=== PATIENT | male | born 1970 | race Caucasian/White ===

== ENCOUNTER → 2019-12-06 13:36 | Outpatient (CLI) | payer OTHER, SELFPAY ==
[2019-12-06 13:39] LABS: Bacteria 0 SEEN /hpf (None Seen); Mucous, Urine 0 SEEN /hpf (<or=2+); Red Blood Cells-Urine 0 SEEN /hpf (0-5); White Blood Cells 0 SEEN /hpf (0-5)
[2019-12-06 15:13] LABS: Color, Urine Yellow (Yellow); Glucose, Dipstick Normal (Normal); Ketone-Dipstick Negative (Negative); Leukocyte Esterase-Dipstick Negative /ul (Negative); Nitrite-Dipstick Negative (Negative); Occult Blood-Urine Negative /ul (Negative); Protein-Dipstick Negative (Negative); Urine Bilirubin Dipstick Negative (Negative); Urine Clarity Clear (Clear); Urine Urobilinogen Normal (Normal)
[2019-12-06 15:15] LABS: Absolute Lymphocyte Count 1.91 X10^3/uL (0.83-4.51); Absolute Neutrophil Count 3.4 X10^3/uL (2.0-7.7); Basophil# 0.06 X10^3/uL; Eosinophil# 0.11 X10^3/uL; Eosinophils% 1.7 % (0-5); Hematocrit 51.2 % (40-54); Hemoglobin 16.9 g/dL (13.0-16.5); Lymphocyte # 1.91 X10^3/ul (4.0); Lymphocyte % 30.3 % (19-41); Mean Corpuscular Hgb 33.3 pg (27.0-32.0); Mean Corpuscular Volume 100.8 fL (80-94); Mean Platelet Vol. 9.7 fl (6.2-12.0); Monocyte# 0.83 X10^3/uL; Monocyte% 13.2 % (0-10); NRBC Flagged by Analyzer 0 % (0-5); Neutrophil # 3.37 X10^3/uL (2.7-7.7); Neutrophil % 53.5 % (47-70); Platelet Count 223 K/mm3 (150-450); RBC Distribution Width CV 11.7 % (11.6-14.6); Red Blood Count 5.08 M/mm3 (4.6-6.2); White Blood Count 6.3 K/mm3 (4.4-11.0)
[2019-12-06 15:22] LABS: Squamous Epithelial Cells - UA 0-5 SEEN /hpf (0-5)
[2019-12-06 16:02] LABS: ALB/GLOB Ratio 0.9 RATIO (0.9-2.4); AST(SGOT) 84 U/L (15-37); Alanine Aminotransfer ALT/SGPT 146 U/L (16-61); Alkaline Phosphatase 45 U/L (45-117); Anion Gap 5 (5-15); BUN 16 mg/dL (7-18); BUN/Creat Ratio 15.7 RATIO (10-20); Calcium,Total 9.3 mg/dL (8.5-10.1); Chloride 105 mmol/L (98-107); Cholesterol 228 mg/dL (200); Creatinine, Serum 1.02 mg/dL (0.70-1.30); EST Glomerular Filtration Rate 83 mL/min (>60); Est Glom Filt Rate - Afr Amer 101 mL/min (>60); Globulin 4.4 g/dL (2.2-4.2); Glucose 86 mg/dL (74-106); High Density Lipoprotein 52 mg/dL; Potassium 4.2 mmol/L (3.5-5.1); Protein, Total 8.4 g/dL (6.4-8.2); Sodium Level 139 mmol/L (136-145); T4 Free Direct 0.72 ng/dL (0.76-1.46); Thyroid Stim Hormone (TSH) 1.41 uIU/mL (0.358-3.74); Triglycerides 148 mg/dL; Very Low Density Lipoprotein 30 mg/dL (5-40)
== END ==
PROVIDERS: PCP Family Medicine; Visit Provider Family Medicine
DX: I10 Essential (primary) hypertension (principal); R07.9 Chest pain, unspecified
CPT/HCPCS: 36415; 80053; 80061; 81001; 84439; 84443; 84484; 85025

== ENCOUNTER → 2022-08-12 | Outpatient (CLI) | payer OTHER, SELFPAY ==
[2022-08-12 12:11] LABS: Absolute Lymphocyte Count 1.62 X10^3/uL (0.83-4.51); Absolute Neutrophil Count 5.2 X10^3/uL (2.0-7.7); Basophil# 0.07 X10^3/uL; Basophil% 0.9 % (0-1); Eosinophil# 0.14 X10^3/uL; Eosinophils% 1.8 % (0-5); Hematocrit 51.4 % (40-54); Hemoglobin 17.7 g/dL (13.0-16.5); Lymphocyte # 1.62 X10^3/ul (0.83-4.51); Lymphocyte % 20.3 % (19-41); Mean Corp Hgb Conc 34.4 g/dL (32-36); Mean Corpuscular Hgb 34.8 pg (27.0-32.0); Mean Corpuscular Volume 101.2 fL (80-94); Mean Platelet Vol. 10.1 fl (6.2-12.0); Monocyte# 0.92 X10^3/uL; Monocyte% 11.5 % (0-10); NRBC Flagged by Analyzer 0 % (0-5); Neutrophil # 5.22 X10^3/uL (2.7-7.7); Neutrophil % 65.1 % (47-70); Platelet Count 246 K/mm3 (150-450); RBC Distribution Width CV 11.5 % (11.6-14.6); RBC Distribution Width SD 43.2 fl (35.1-43.9); Red Blood Count 5.08 M/mm3 (4.6-6.2)
[2022-08-12 13:01] LABS: AST(SGOT) 116 U/L (15-37); Alanine Aminotransfer ALT/SGPT 127 U/L (16-61); Albumin, Serum 4.1 g/dL (3.2-5.0); Alkaline Phosphatase 47 U/L (45-117); Anion Gap 8 (5-15); BUN 9 mg/dL (7-18); BUN/Creat Ratio 7.8 RATIO (10-20); Calcium,Total 9.8 mg/dL (8.5-10.1); Chloride 99 mmol/L (98-107); Cholesterol 241 mg/dL (200); Creatinine, Serum 1.15 mg/dL (0.70-1.30); EST Glomerular Filtration Rate 72 mL/min (>60); Est Glom Filt Rate - Afr Amer 87 mL/min (>60); Globulin 4.3 g/dL (2.2-4.2); Glucose 111 mg/dL (74-106); High Density Lipoprotein 53 mg/dL; Potassium 4.4 mmol/L (3.5-5.1); Protein, Total 8.4 g/dL (6.4-8.2); Sodium Level 135 mmol/L (136-145); Thyroid Stim Hormone (TSH) 1.77 uIU/mL (0.358-3.74); Triglycerides 132 mg/dL; Very Low Density Lipoprotein 26 mg/dL (5-40)
[2022-08-13 10:21] LABS: Hemoglobin A1c 5.5 % (3.8-5.6)
== END | disposition home or self-care (01) ==
PROVIDERS: PCP Family Medicine; Referring Provider Family Medicine; Visit Provider Family Medicine
DX: Z00.00 Encounter for general adult medical examination without abnormal findings (principal); R73.01 Impaired fasting glucose; E55.9 Vitamin D deficiency, unspecified; I10 Essential (primary) hypertension; Z12.5 Encounter for screening for malignant neoplasm of prostate; Z77.098 Contact with and (suspected) exposure to other hazardous, chiefly nonmedicinal, chemicals
CPT/HCPCS: 36415; 80053; 80061; 82306; 83036; 84153; 84443; 85025; G0103

== ENCOUNTER 2022-12-21 20:39 | Emergency (ER) | payer OTHER, SELFPAY ==
[2022-12-21 20:41] VITALS: BP 122/92; PULSE 94; RESP 15; TEMP 36.6; O2SAT 100; BMI 28.8
--- NOTE | 2022-12-21 21:21 | ED.RN ---
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 PT DENIED ANY QUESTIONS OR CONCERNS
--- NOTE | 2022-12-21 22:01 | CT_ITS ---
STUDY: CT BRAIN WITHOUT CONTRAST REASON FOR EXAM: Male, 52 years old. head injury RADIATION DOSAGE (If Supplied By Facility): CTDIvol = ( 44.99 ) mGy, DLP = ( 846.73 ) mGycm TECHNIQUE: Transaxial CT imaging of the brain was performed without administration of intravenous contrast material. Individualized dose optimization techniques were used for this CT. COMPARISON: No relevant priors. FINDINGS: Normal soft tissue structures. Normal calvarium. There is mild cerebral atrophy with widening of the extra-axial spaces and ventricular dilatation. Normal white matter tracts of the cerebral hemispheres. Normal basal ganglia and thalami. Normal brainstem. Normal cerebellum. There is no intracranial hemorrhage. There are no findings of an acute ischemic infarction. Normal visualized paranasal sinuses. CT/Brain/Head without Contrast IMPRESSION: Involutional changes otherwise normal unenhanced CT scan of the brain. Electronically Signed: Monika Mclean MD at 22:44 EST ,
[2022-12-21] MEDS: Ondansetron ODT 4 MG Tablet PO (22:53)
[2022-12-21] MEDS: Acetaminophen 325 MG Tablet 650 MG PO (22:53)
[2022-12-21 23:00] VITALS: BP 120/63; PULSE 95; RESP 16; O2SAT 98
--- NOTE | 2022-12-21 23:18 | EDS_ITS ---
HPI History of Present Illness Chief Complaint: Head Injury Informant: patient Narrative Narrative: Patient is a 52-year-old male with history of anxiety, hypertension and prior concussion/head injuries presenting for head injury. Today around 1130 patient fell backwards at work out of his chair. He hit his head. Laying on concrete. He is not sure if he lost consciousness but thinks he did. He states afterwards his body feel like it went into shock and he had a full body spasm. He states he fell like he had a seizure. He denies any associated urinary incontinence. He does not think he bit his tongue. Since then he has had progressively worsening headache, whiplash, shoulder pain with left worse than right, back pain, ringing in his ears and confusion. Notes he is having ear pain. Is not on any blood thinners. No other complaints at this time. Did take Motrin earlier in the day but states it is worn off and his symptoms been worse since then. Notes he did have a greta earlier today but does not feel intoxicated. Notes he does feel dizzy. [facility] Medical History Anxiety Hernia HTN (hypertension) Home Medications citalopram 20 mg tablet 40 mg PO DAILY 12/21/22 [History Last Taken Unknown] ibuprofen 600 mg tablet 600 mg PO Q6H PRN PRN pain #20 TABLETS 12/21/22 [Rx Last Taken Unknown] lisinopril 10 mg-hydrochlorothiazide 12.5 mg tablet 1 tab PO DAILY 12/21/22 [History Last Taken Unknown] ondansetron 4 mg disintegrating tablet 4 mg PO Q8H PRN PRN Nausea #15 tabs 12/21/22 [Rx Last Taken Unknown] Allergy/AdvReac Type Severity Reaction Status Date / Time Iodinated Contrast Media Allergy Swelling Verified 12/21/22 20:46 [Iodinated Contrast Media - IV Dye] morphine AdvReac AGITATED Verified 12/21/22 20:46 Surgical History History of appendectomy History of hernia surgery Social History household members: family housing: house current occupational status: employed Smoking Status: Former smoker ROS ROS ED Constitutional Constitutional ED: Denies chills or fever(s) Eyes Eyes: Reports blurry vision ENT ENT ED: Reports ear pain; Denies rhinorrhea or sore throat Cardiovascular Cardiovascular: Denies chest pain or palpitations Respiratory/Chest Respiratory/Chest: Denies cough or dyspnea Gastrointestinal Gastrointestinal: Reports nausea; Denies abdominal pain or vomiting Musculoskeletal Musculoskeletal: Reports back pain and neck pain Integumentary Denies rash Neurologic Neurologic: Reports headache(s); Denies paresthesias or weakness Psychiatric Psychiatric: Reports anxiety Hematologic/Lymphatic Hematologic/Lymphatic: Denies easy bleeding or easy bruising EXAM Physical Exam Const Vital Signs: 12/21/22 20:41 12/21/22 21:36 12/21/22 23:00 Temperature 97.8 F Temperature Source Temporal Pulse Rate 94 95 Respiratory Rate 15 16 Respiratory Effort Normal Respiratory Depth Normal Respiratory Pattern Normal Blood Pressure 122/92 H 120/63 Blood Pressure Mean 102 82 Pulse Ox 100 98 Oxygen Delivery Method Room Air Room Air Room Air 12/21/22 23:00 Temperature Temperature Source Pulse Rate 95 Respiratory Rate 16 Respiratory Effort Respiratory Depth Respiratory Pattern Blood Pressure 120/63 Blood Pressure Mean 82 Pulse Ox 98 Oxygen Delivery Method Positive well nourished and well developed General Appearance ED: well developed and NAD HEENT Reports TM's clear HEENT Narrative: Posterior scalp cephalhematoma present, no laceration appreciated. No signs of basilar skull fracture, no signs of facial trauma tenderness Nose: Negative for septum abnormal Tympanic Membrane ED: Yes TM's clear Eyes PERRL and EOMs intact bilaterally Neck full ROM Neck Narrative: No midline tenderness, no step-off sign General: Negative for tenderness Chest Wall inspection of chest normal and palpation of chest normal Resp normal respiratory effort and clear to auscultation bilaterally Cardio regular rhythm and no murmurs Rate: regular rate GI normal to inspection, nondistended, normoactive bowel sounds and non-tender Back/Spine normal to inspection and no thoracic nor lumbar tenderness Extremity normal to inspection and full ROM Extremity Narrative: Mild diffuse tenderness of the left shoulder which is not reproducible with range of motion General Extremety ED: Negative for deformity General Extremity: Negative for deformity Neuro oriented x3, CN's II-XII intact bilaterally, moves all extremities, no focal motor deficits, no sensory deficits noted and gait normal Darlene Coma Scale: document GCS findings Spontaneous Obeys Commands Oriented 15 Psych thought process normal Mood & Affect: anxious Skin no rashes or lesions noted and no wounds MDM MDM MDM Narrative Medical decision making narrative: Patient is evaluated for head injury, subsequent headache and other vague neurol ogic symptoms. I suspect this is more of a concussion however given his nausea, blurry vision, ringing in his ears and sense of confusion I did obtain a CT of the brain to ensure that there is no acute intracranial hemorrhage. Patient is initially given oral Zofran and Tylenol. He does not have any focal neurologic deficits on physical exam. CT of the brain does not show any acute process. Not have any midline tenderness and I suspect the rest of his muscle skeletal pain is more tightening of the muscles associate with this fall. 1 CT of the brain is reviewed and does not show any acute intracranial hemorrhage, patient is given IM Toradol. He is able to ambulate with a steady gait and walk to the bathroom by himself. Will be given referral for neurology as he has a history of prior concussions I suspect this is playing signs of a postconcussive syndrome. Is given a prescription for Zofran and Motrin 600 mg Given return precautions. Patient and spouse verbalized agreement understand this plan. Discharged home in stable condition. Radiography Diagnostic Testing: Clinical Impression(s) from Imaging Studies Brain CT 12/21/22 22:01 IMPRESSION: Involutional changes otherwise normal unenhanced CT scan of the brain. Electronically Signed: Monika Mclean MD at 22:44 EST Reading Location ID and State: [address] [place] [address] , Service support , Discharge Plan Triage Chief Complaint: Head Injury ED Provider: Lizette Bolton Dx/Rx/DC Orders Clinical Impression: Concussion, Closed head injury Instructions: ED Concussion, ED Head Injury (Adult) Prescriptions: New ondansetron 4 mg tablet,disintegrating 4 mg PO Q8H PRN PRN (Reason: Nausea) Qty: 15 0RF ibuprofen 600 mg tablet 600 mg PO Q6H PRN PRN (Reason: pain) Qty: 20 0RF No Action citalopram 20 mg tablet 40 mg PO DAILY Patient Comments: TAKE 2 TABLET BY MOUTH EVERY DAY lisinopril-hydrochlorothiazide 10-12.5 mg tablet 1 tab PO DAILY Patient Comments: TAKE 1 TABLET BY MOUTH EVERY DAY Primary Care Provider: Flavio Delong Referrals: Flavio Delong DO [Primary Care Provider] - Juve Norris MD [Non-Staff -Ordering Privileges] - As Needed Activity Restrictions/Additional Instructions: Alternate ibuprofen with Tylenol. Do not take any more ibuprofen tonight as you did receive a dose of IM Toradol. Follow-up with your primary care doctor and you been given referral for neurology if your symptoms persist. At this time I do think it safe for you to go home and he did not have any major signs of trauma on your head CT such as bleeding on the brain or skull fracture Disposition Disposition: Home, Self Care Discharge Date/Time: 12/21/22 23:36
[2022-12-21] MEDS: Ketorolac 15 MG/ML Vial IM (23:22)
== END 2022-12-21 23:36 | disposition home or self-care (01) ==
PROVIDERS: Emergency Provider Emergency Medicine; PCP Family Medicine; Visit Provider Emergency Medicine
DX: S06.0X0A Concussion without loss of consciousness, initial encounter (principal); I10 Essential (primary) hypertension; F41.9 Anxiety disorder, unspecified; Z79.899 Other long term (current) drug therapy; Z87.891 Personal history of nicotine dependence; W07.XXXA Fall from chair, initial encounter
CPT/HCPCS: 70450; 96372; 99283

== ENCOUNTER → 2023-03-21 | Outpatient (CLI) | payer OTHER, SELFPAY ==
--- OUTSIDE RECORDS SUMMARY | 2023-03-21 13:36 | XMS RPT_ITS | CCD ---
Author Name Unknown Address [address] [place] [address] Organization [facility] Care Team Providers Care Audio Visual Equipment Rental Clerk Name Role Phone Nikia Avendaño Unavailable Socrates Gdofrey Unavailable Elena Munoz Unavailable Unavailable Genet Ye Unavailable Unavailable Pillowcase Cleaner, System Unavailable Unavailable Unavailable Unavailable Allergies Allergy Classification Reported Allergen(s) Allergy Type Date of Onset Reaction(s) Facility (1 source) Acetaminophen / HYDROcodone; Translations: [Vicodin *ANALGESICS - OPIOID*] Drug Allergy [facility] Work Phone: (1 source) Shellfish; Translations: [Shellfish] Allergy to substance (finding) [facility] Work Phone: (1 source) Morphine Derivatives; Translations: [Morphine Derivatives] Allergy to substance (finding) [facility] Work Phone: Medications Completed/Discontinued Medications Medication Drug Class(es) Dates Sig (Normalized) Sig (Original) amoxicillin 875 mg / clavulanate 125 mg oral tablet (1 source) Penicillin-class Antibacterial Start: 12-03-2011 End: 12-17-2011 take 1 tablet by mouth twice daily AUGMENTIN, 875-125MG (Oral Tablet) 1 Tablet bid for 14 days Quantity: 28 {Tablet} Refills: 0 Ordered: 03-Dec-2011 Jessica Crocker CNP Start : 03-Dec-2011 End : 17-Dec-2011 Inactive 24 hr clarithromycin 500 mg extended release oral tablet (1 source) Macrolide Antimicrobial Start: 12-06-2011 End: 12-16-2011 take 2 tablets by mouth once daily BIAXIN XL PAC, 500MG (Oral Tablet Extended Release 24 Hour) 2 (two) Tablet ER 24HR daily for 10 days Quantity: 20 {Tablet_ER_24HR} Refills: 0 Ordered: 06-Dec-2011 Jessica Crocker CNP Start : 06-Dec-2011 End : 16-Dec-2011 Inactive fluticasone propionate 0.05 mg/actuat metered dose nasal spray (1 source) Corticosteroid Start: 12-03-2011 End: 04-17-2014 FLONASE, 50MCG/ACT (Nasal Suspension) 2 (two) Puff(s) daily for 0 days Quantity: 1 {Suspension} Refills: 0 Ordered: 17-Apr-2014 Genet Ye Start : 03-Dec-2011 End : 17-Apr-2014 Discontinued ibuprofen 200 mg oral tablet (1 source) Nonsteroidal Anti-inflammatory Drug Start: 09-15-2006 End: 07-14-2010 take 3 tablets by mouth three times daily IBUPROFEN IB, 200MG (Oral Tablet) 3 (three) Tablet TID for 0 days Refills: 0 Ordered: 15-Sep-2006 NURA Burrows LPN Start : 15-Sep-2006 End : 14-Jul-2010 Discontinued Comments: This order discontinued per -Span. Problems Active Problems Problem Classification Problem Date Documented Da te Episodic/Chronic Abdominal pain (3 sources) Epigastric pain; Translations: [Generalized abdominal pain] 05-21-2014 Episodic Disorders of lipid metabolism (1 source) Hypertriglyceridemia; Translations: [Hyperglyceridemia] 02-12-2015 Chronic Nonspecific chest pain (1 source) Chest pain; Translations: [Other chest pain] 12-24-2014 Episodic Other connective tissue disease (2 sources) Pain in limb; Translations: [Pain in limb] 05-21-2014 Episodic Other ear and sense organ disorders (1 source) Disorder of ear; Translations: [Other specified disorders of ear, unspecified ear] 01-17-2015 Episodic Past or Other Problems Problem Classification Problem Date Documented Da te Episodic/Chronic Unclassified (2 sources) Unspecified Diagnosis 05-21-2014 Unclassified (5 sources) Unclassified (1 source) Eustachian Tube Dysfunction (381.81) Unclassified (1 source) Elevated LFTs 05-21-2014 Unclassified (2 sources) Diarrhea (Renamed from D (diarrhea)) Unclassified (1 source) Abdominal Pain,General (789.07) Unclassified (1 source) Abnormal blood chemistry (790.6) Unclassified (1 source) ABN GTT 05-21-2014 Unclassified (1 source) Abn. Echo 05-21-2014 Results Test Name Value Interpretation Reference Range Facil ity Vital Signs Date Time Vital Sign Value Performing Clinician Facility 05-21-2014 10:49-0400 BMI (Body Mass Index) 28.46 kg/m2 Nikia Avendaño [facility] Work Phone: 05-21-2014 10:490400 Body Temperature 96 [degF] Nikia Fast [facility] Work Phone: 05-21-2014 10:49-0400 Body weight 77.57 kg Nikia Fast [facility] Work Phone: 05-21-2014 10:49-0400 BP Diastolic 90 mm[Hg] Nikia Fast [facility] Work Phone: Encounters Encounter Date Encounter Type Care Provider Facility Start: 05-21-2014 End: 05-21-2014 Office outpatient visit 15 minutes Nikia Avendaño [facility] Start: 04-17-2014 End: 04-18-2014 Office outpatient visit 25 minutes Nikia Fast [facility] Start: 12-06-2011 End: 12-06-2011 Annotation/Addendum Nikia Avendaño [facility] Start: 12-03-2011 End: 12-03-2011 Office outpatient visit 15 minutes Nikia Avendaño [facility] Start: 07-23-2010 End: 07-23-2010 Patient encounter procedure Nikia Avendaño [facility] Start: 07-14-2010 End: 07-17-2010 Patient encounter procedure Nikia Avendaño [facility] Start: 09-15-2006 End: 09-15-2006 Patient encounter procedure Nikia Fast [facility] Start: 09-15-2006 End: 09-15-2006 Historical Summary Nikia Fast [facility] Procedures Date Procedure Procedure Detail Performing Clinician Start: 05-27-2014 End: 05-27-2014 Gallbladder Comments: See Note; NOTES: [facility] Imaging Services [address] [place] [address] Ultrasound Report MR#: [id number] Acct: [id number] Name: STAR MILLER Rep #: [id number] : 1970 M 43 From: Pantera James MD PCP: Nikia Avendaño DO Status: REG CLI Study: Gallbladder Date of Exam: 05/27/14 Exam# [id number] Ordering Dr: Nikia Avendaño DO STUDY: ABDOMINAL ULTRASOUND - RIGHT UPPER QUADRANT REASON FOR VISIT: Male, 43 years old. Abdominal pain. TECHNIQUE: Ultrasound evaluation of the right upper quadrant was performed with real-time and static velez-scale imaging. TECHNICAL QUALITY: Adequate. COMPARISON: None. FINDINGS: Liver: The liver measures 15.8 cm. There is increased echogenicity consistent with fatty infiltration. The bile ducts are within normal limits. There is hepatic color flow. The direction of portal flow is hepatopetal. There is no demonstrated mass lesion. Gallbladder: Normal distended gallbladder. The gallbladder wall measures 1.5 mm. There is a negative sonographic White's sign. There is no pericholecystic fluid. There are no gallstones. Common Bile Duct (C.B.D.): The common bile duct measures 3.9 mm. Pancreas: Normal size of the head, body and tail of the pancreas. There is normal echogenicity of the pancreas. There is no demonstrated pancreatic mass or cyst. Right Kidney: Normal size of the right kidney. The right kidney measures 11.5 cm x 4.2 cm x 4.2 cm. Normal renal cortex. The right cortex measures 1.3 cm. There is no demonstrated renal mass or cyst. There is no right hydronephrosis. IMPRESSION: Fatty infiltration of the liver. Electronically Signed: Pantera James MD at 9:51 EDT Tel [phone], Service support [phone], CC: Nikia Avendaño DO Back Feeder Plywood Layup Line: Signed Nikia Avendaño Work Phone: Start: 04-24-2014 End: 04-25-2014 Abdomen/Pelvis without Cont Comments: See Note; NOTES: [facility] Imaging Services [address] [place] [id number] CAT Scan Report MR#: [id number] Acct: [id number] Name: STAR MILLER Rep #: [id number] : 1970 M 43 From: Titi Hernandez MD PCP: Nikia Avendaño DO Status: REG CLI Study: Abdomen/Pelvis without Cont Date of Exam: 04/24/14 Exam# [id number] Ordering Dr: Nikia Avendaño DO STUDY: CT ABDOMEN AND PELVIS WITHOUT CONTRAST REASON FOR EXAM: Male, 43 years old. Abdominal pain. RADIATION DOSAGE (If Supplied By Facility): CTDIvol = ( 6.87 ) mGy, DLP = ( 451.72 ) mGycm TECHNIQUE: Transaxial images were obtained from the dome of the diaphragm to the symphysis pubis with oral contrast, and without intravenous contrast. Sagittal and coronal images were reconstructed. COMPARISON: None. FINDINGS: The visualized lung bases are unremarkable. The visualized portions of the heart are within normal limits. There is decreased attenuation of the liver consistent with steatosis. Normal gallbladder and extrahepatic biliary system. Normal spleen. Normal pancreas. Normal bilateral adrenal glands. Normal right kidney. Normal left kidney. Normal visualized stomach. Normal small intestine. Normal colon. There are surgical clips in the region of the appendix consistent with a prior appendectomy. Normal abdominal aorta. Normal inferior vena cava. Normal retroperitoneum. Normal urinary bladder. Normal abdominal wall. Normal osseous structures. IMPRESSION: Normal unenhanced CT of the abdomen and pelvis. Electronically Signed: Titi Hernandez MD at 17:04 EDT Tel , Service support [phone], CC: Nikia Avendaño DO Back Feeder [employer] Layup Line: Signed Nikia Avendaño Work Phone: Plan of Treatment Date Care Activity Detail Author Start: 05-21-2014 Assay of gammaglobulin ige IMMUNOGLOBULIN E (IgE) (67747) [facility] Work Phone: Start: 05-21-2014 Assay of gammaglobulin iga igd igg igm each IGA/IGD/IGG/IGM-EACH ([id number]) [facility] Work Phone: Start: 04-17-2014 Patient Education Abdominal Pain: abdominal pain [facility] Work Phone: Start: 04-17-2014 Procedure Education Eprescribed prescriptions (G8553) [facility] Work Phone: Start: 09-15-2006 Provider Instructions for Treatment Musculoskeletal Injuries [facility] Work Phone: [facility] Work Phone: [facility] Work Phone: Payers Date Payer Category Payer Policy ID Unknown Social History Date Type Detail Facility Caffeine Use Caffeine Use [facility] Work Phone: Family History Unknown Family Member Name Dates Details First Degree Relatives Comments:[place], Heart/Lung, HBP , high cholesterol Status:Active Instructions Name Dates Details Patient Instructions Indication:Epigastric Pain (Renamed from Abdominal pain, epigastric) Start:21-May-2014 Instruction Type:Provider Instructions for Treatment Patient Instructions Indication:Abdominal pain, acute, generalized Start:17-Apr-2014 Instruction Type:Provider Instructions for Treatment Additional Source Comments FOR RECORDS PERTAINING TO PATIENTS WHO ARE OR HAVE BEEN ENROLLED IN A CHEMICAL DEPENDENCY/SUBSTANCEABUSE PROGRAM, SOME INFORMATION MAY BE OMITTED. This clinical summary was aggregated from multiple sources. Caution should be exercised in using it in the provision of clinical care. This summary normalizes information from multiple sources, and as a consequence, information in this document may materially change the coding, format and clinical context of patient data. In addition, data may be omitted in some cases. CLINICAL DECISIONS SHOULD BE BASED ON THE PRIMARY CLINICAL RECORDS. [employer] [facility]. provides no warranty or guarantee of the accuracy or completeness of information in this document.
[2023-03-28 19:07] LABS: Fats, Neutral Normal (.); Fats, Total Normal (.)
== END | disposition home or self-care (01) ==
LOC: LABSPEC 13:06
PROVIDERS: PCP Family Medicine; Visit Provider Family Medicine
DX: R19.7 Diarrhea, unspecified (principal)
CPT/HCPCS: 82705; 83630

== ENCOUNTER → 2023-05-25 | Outpatient (CLI) | payer OTHER, SELFPAY ==
[2023-05-25 17:49] LABS: CRP < 2.90 mg/L (0.0-3.0)
[2023-05-27 15:08] LABS: Endomysial Antibody IgA Negative (Negative); Immunoglobulin A 512 mg/dL (90-386); t-Transglutaminase IgA <2 U/mL (0-3)
== END | disposition home or self-care (01) ==
LOC: MTLAB 15:30
PROVIDERS: PCP Family Medicine; Referring Provider Internal Medicine Gastroenterology; Visit Provider Internal Medicine Gastroenterology
DX: R19.7 Diarrhea, unspecified (principal)
CPT/HCPCS: 36415; 82784; 83516; 86140; 86255

== ENCOUNTER → 2023-05-26 | Outpatient (CLI) | payer OTHER, SELFPAY ==
--- NOTE | 2023-05-26 13:37 | MRI_ITS ---
STUDY: MRI CERVICAL SPINE WITHOUT CONTRAST REASON FOR EXAM: Male, 52 years old. CERVICAL PAIN TECHNIQUE: Standardized fat and water weighted pulse sequences were obtained in the sagittal and axial planes. COMPARISON: None FINDINGS: Normal foramen magnum and brainstem-cervical cord junction. Normal craniovertebral junction. Normal anterior atlantoaxial articulation. Normal odontoid process. Normal cervical lordosis. Normal vertebral bodies and posterior osseous elements. C2-3: Normal endplates. Normal disc height, signal and morphology. Normal central canal and intervertebral neural foramina. C3-4: Normal endplates. Normal disc height, signal and minimal bulging of the disc Normal central canal and intervertebral neural foramina. C4-5: Normal endplates. Normal disc height, signal and minimal bulging of the disc. Normal central canal and intervertebral neural foramina. C5-6: Grade 1 spondylolisthesis Normal endplates. Normal disc height, signal and minimal bulging disc osteophyte complex.. Normal central canal and intervertebral neural foramina. C6-7: Normal endplates. Normal disc height, signal and small left foraminal disc/osteophyte protrusion.. Normal central canal. Moderate left neural foraminal stenosis. C7-T1: Normal endplates. Normal disc height, signal and morphology. Normal central canal and intervertebral neural foramina. Normal cervical cord. Normal visualized soft tissue structures. MRI/Spine Cervical (Routine) IMPRESSION: No evidence for acute fracture or other significant bony pathology. Mild spondylosis. Moderate left neural foraminal stenosis at C6-7 secondary to left foraminal disc/osteophyte protrusion Electronically Signed: Johnnie Perez MD at 16:38 EDT ,
== END | disposition home or self-care (01) ==
LOC: MRI 13:21
PROVIDERS: PCP Family Medicine
DX: S06.0X0A Concussion without loss of consciousness, initial encounter (principal)
CPT/HCPCS: 72141

== ENCOUNTER → 2023-06-06 | Outpatient (CLI) | payer OTHER, SELFPAY ==
--- NOTE | 2023-06-06 07:57 | RAD_ITS ---
STUDY: X-RAY - ESOPHAGUS (BARIUM SWALLOW) WITH FLUOROSCOPY REASON FOR EXAM: Male, 52 years old. DYSPHAGIA TECHNIQUE: 18 view(s) of the esophagus were obtained following swallowing of barium. FLUOROSCOPY TIME (if supplied): (40) minutes/seconds. 11.73 mGy. COMPARISON: None. FINDINGS: There is no demonstrated esophageal foreign body. There is no demonstrated stricture or mucosal abnormality. Small sliding hiatal hernia. Weblike narrowing is seen at the gastroesophageal junction. The patient ingested a 12 mm tablet of barium. The tablet is trapped at the gastroesophageal junction at the level of the weblike narrowing. Incidental note is made of a 8.5 mm x 4.8 mm diverticulum at the junction of the second and third portions of the duodenum. Normal visualized aortic arch and descending thoracic aorta. Normal visualized pulmonary parenchyma. There are diffuse degenerative changes of the visualized thoracic spine. RAD/Esophagus Dual Contrast IMPRESSION: Small hiatal hernia with a small weblike narrowing at the gastroesophageal junction with trapping of the 12 mm tablet of barium. Incidental note is made of a diverticulum at the junction of the second and third portions of the duodenum. Electronically Signed: Pantera James MD at 13:31 EDT ,
== END | disposition home or self-care (01) ==
LOC: RAD 07:52
PROVIDERS: PCP Family Medicine; Referring Provider Internal Medicine Gastroenterology; Visit Provider Internal Medicine Gastroenterology
DX: R13.10 Dysphagia, unspecified (principal)
CPT/HCPCS: 74221

== ENCOUNTER 2024-02-06 00:05 | Emergency (ER) | payer OTHER, SELFPAY ==
[2024-02-06] VITALS (12 sets, daily range): BP systolic 90–113; BP diastolic 62–86; PULSE 68–82; RESP 14–21; TEMP 36.4–36.6; O2SAT 91–98; BMI 28.9
--- NOTE | 2024-02-06 00:22 | RAD_ITS ---
INDICATION: chest pain EXAMINATION/TECHNIQUE: X-RAY - XR Chest 1 View COMPARISON: 05/24/2005 chest radiograph Findings: Single frontal view of the chest. LUNG PARENCHYMA: No acute focal airspace disease or mass lesion. PLEURA: No pleural effusion. No pneumothorax. HEART/GREAT VESSELS: Cardiomediastinal silhouette is unremarkable. BONES: Osseous structures are unremarkable for age. RAD/Chest 1 View (Portable) IMPRESSION: Chest with no acute disease. Electronically Signed: Phillip Butcher MD at 2:15 EST ,
--- NOTE | 2024-02-06 00:22 | EKG12_ITS ---
Test Reason : CP Blood Pressure : */* mmHG Vent. Rate : 78 BPM Atrial Rate : 78 BPM P-R Int : 174 ms QRS Dur : 86 ms QT Int : 390 ms P-R-T Axes : 4 1 17 degrees QTcB Int : 444 ms Normal sinus rhythm Normal ECG Confirmed by LISA TUCKER, MYAH ([id number]), senior editor JULIANNA ALEXANDRE ([id number]) on 02/06/2024 10:49:24 AM Referred By: BB Confirmed By: MYAH GONZALEZ MD
--- NOTE | 2024-02-06 00:23 | EDS_ITS ---
HPI History of Present Illness Chief Complaint: Chest Pain Informant: patient and spouse/S.O. Narrative Narrative: 53-year-old male presenting with chest discomfort feels like it is burning on the left side nonpleuritic. States has been there for a while but worse in the past 3 days along with generalized weakness, chills and sweats, occasional dyspnea, blurry vision on occasion, numbness and tingling all over his body, lightheadedness, no GI symptoms. He states that this has been going on for couple months. He states he did have a PCP visit for it. Yessi Tuesday night at midnight, brings him in because they were checking his blood pressure and had been a little bit elevated in the 150s when he usually is around 140, but yessi it was somewhere in the high 80s/30s and he felt like he was going to pass out. [facility] Medical History Anxiety HTN (hypertension) Hernia Home Medications ?Medication ?Instructions ?Recorded ?Last Taken ?Type citalopram 20 mg tablet 40 mg PO DAILY 12/21/22 Unknown History ibuprofen 600 mg tablet 600 mg PO Q6H PRN PRN pain #20 12/21/22 Unknown Rx TABLETS lisinopril 10 1 tab PO DAILY 12/21/22 Unknown History mg-hydrochlorothiazide 12.5 mg tablet Allergy/AdvReac Type Severity Reaction Status Date / Time Iodinated Contrast Media Allergy Swelling Verified 02/06/24 00:06 (Iodinated Contrast Media - IV Dye) Opioids - Morphine Analogues AdvReac Other Verified 02/06/24 00:12 (narcotics) Surgical History History of appendectomy History of hernia surgery Social History household members: family housing: house current occupational status: employed Smoking Status: Former smoker ROS ROS ED Constitutional Constitutional ED: Reports fatigue and weakness; Denies chills or fever(s) Eyes Eyes: Reports blurry vision bilateral (Intermittent no vision loss); Denies change in vision or diplopia ENT ENT ED: Denies ear pain, rhinorrhea or sore throat Cardiovascular Cardiovascular: Reports as per HPI, chest pain and lightheadedness; Denies palpitations or syncope Respiratory/Chest Respiratory/Chest: Denies cough or dyspnea on exertion Gastrointestinal Gastrointestinal: Denies abdominal pain, diarrhea, nausea or vomiting Genitourinary Genitourinary ED: Reports other Details: Foamy urine ; Denies dysuria or hematuria Musculoskeletal Musculoskeletal: Denies back pain or neck pain Integumentary Denies abscess or rash Neurologic Neurologic: Reports paresthesias RUE, RLE, LUE and LLE; Denies headache(s) or weakness EXAM Physical Exam Const Vital Signs: 02/06/24 00:06 02/06/24 00:06 02/06/24 00:24 Temperature 97.5 F L Temperature Source Oral Pulse Rate 78 Pulse Rate [Lying] Pulse Rate [Sitting (for 1 minute prior to obtaining)] Pulse Rate [Standing (for 1 minute prior to obtaining)] Respiratory Rate 19 H Respiratory Effort Normal Blood Pressure 113/78 Blood Pressure [Lying] Blood Pressure [Sitting (for 1 minute prior to obtaining)] Blood Pressure [Standing (for 1 minute prior to obtaining)] Blood Pressure Mean 89 Blood Pressure Mean [Lying] Blood Pressure Mean [Sitting (for 1 minute prior to obtaining)] Blood Pressure Mean [Standing (for 1 minute prior to obtaining)] Pulse Ox 98 Oxygen Delivery Method Room Air 02/06/24 01:17 02/06/24 01:30 02/06/24 01:45 Temperature Temperature Source Pulse Rate 73 73 69 Pulse Rate [Lying] Pulse Rate [Sitting (for 1 minute prior to obtaining)] Pulse Rate [Standing (for 1 minute prior to obtaining)] Respiratory Rate 14 18 16 Respiratory Effort Blood Pressure 98/77 95/73 Blood Pressure [Lying] Blood Pressure [Sitting (for 1 minute prior to obtaining)] Blood Pressure [Standing (for 1 minute prior to obtaining)] Blood Pressure Mean 84 81 Blood Pressure Mean [Lying] Blood Pressure Mean [Sitting (for 1 minute prior to obtaining)] Blood Pressure Mean [Standing (for 1 minute prior to obtaining)] Pulse Ox 95 95 93 Oxygen Delivery Method 02/06/24 02:00 02/06/24 02:15 02/06/24 02:30 Temperature Temperature Source Pulse Rate 69 68 Pulse Rate [Lying] Pulse Rate [Sitting (for 1 minute prior to obtaining)] Pulse Rate [Standing (for 1 minute prior to obtaining)] Respiratory Rate 18 17 Respiratory Effort Blood Pressure 104/86 H 91/68 90/68 Blood Pressure [Lying] Blood Pressure [Sitting (for 1 minute prior to obtaining)] Blood Pressure [Standing (for 1 minute prior to obtaining)] Blood Pressure Mean 93 76 76 Blood Pressure Mean [Lying] Blood Pressure Mean [Sitting (for 1 minute prior to obtaining)] Blood Pressure Mean [Standing (for 1 minute prior to obtaining)] Pulse Ox 95 94 Oxygen Delivery Method 02/06/24 02:30 02/06/24 02:45 02/06/24 03:00 Temperature Temperature Source Pulse Rate 70 82 74 Pulse Rate [Lying] Pulse Rate [Sitting (for 1 minute prior to obtaining)] Pulse Rate [Standing (for 1 minute prior to obtaining)] Respiratory Rate 17 21 H 18 Respiratory Effort Blood Pressure 90/68 98/78 90/63 Blood Pressure [Lying] Blood Pressure [Sitting (for 1 minute prior to obtaining)] Blood Pressure [Standing (for 1 minute prior to obtaining)] Blood Pressure Mean 76 86 72 Blood Pressure Mean [Lying] Blood Pressure Mean [Sitting (for 1 minute prior to obtaining)] Blood Pressure Mean [Standing (for 1 minute prior to obtaining)] Pulse Ox 91 95 91 Oxygen Delivery Method 02/06/24 03:15 02/06/24 03:24 Temperature Temperature Source Pulse Rate Pulse Rate [Lying] 70 Pulse Rate [Sitting (for 1 minute prior to obtaining)] 74 Pulse Rate [Standing (for 1 minute prior to obtaining)] 80 Respiratory Rate Respiratory Effort Blood Pressure 93/65 Blood Pressure [Lying] 96/62 Blood Pressure [Sitting (for 1 minute prior to obtaining)] 102/78 Blood Pressure [Standing (for 1 minute prior to obtaining)] 106/80 Blood Pressure Mean 75 Blood Pressure Mean [Lying] 73 Blood Pressure Mean [Sitting (for 1 minute prior to obtaining)] 86 Blood Pressure Mean [Standing (for 1 minute prior to obtaining)] 88 Pulse Ox Oxygen Delivery Method Positive well nourished and well developed Constitutional Narrative: Appears fatigued but no distress General Appearance ED: well developed and NAD HEENT Reports moist mucous membranes normocephalic and atraumatic Eyes PERRL and EOMs intact bilaterally Neck full ROM, no lymphadenopathy, supple and no JVD Resp normal respiratory effort and clear to auscultation bilaterally Cardio regular rate, regular rhythm and no murmurs Rate: Negative for bradycardia or tachycardic GI non-tender and non-distended Auscultation: normoactive bowel sounds Palpation: soft Back/Spine no CVA tenderness General Back: other FROM Extremity normal to inspection General Extremety ED: Negative for edema, pulses abnormal or tenderness General Extremity: Negative for edema or pulses abnormal Neuro oriented x3, CN's II-XII intact bilaterally and no sensory deficits noted Neuro Narrative: Normal speech no dysarthria Sensorium / Orientation: awake and alert Motor Exam: general weakness Skin no rashes or lesions noted and no wounds MDM MDM MDM Narrative Medical decision making narrative: During my evaluation the patient appears to be very tired and states I am going out as he appears to fall asleep and then occasionally answer my questions and comments during this while his vital signs are completely normal, arguing against syncope. I am okay running some cardiac test, chest x-ray, TSH to look for hypothyroidism, monotest, and some basic labs to put all of his symptoms for months in the context. In the meantime he was given IV fluids. Does not have any focal neurologic deficits to suggest a CT of the head would be needed. Additionally his dizziness is lightheadedness and not vertiginous in nature. After the IV fluids, it was noted that he had a couple of lower blood pressures although his MAP are normal. At this time I had nursing do orthostatics, although the patient felt dizzy, his orthostatics are negative and normal. His labs are all normal except for a D-dimer which is elevated. Chest x-ray 2 views on my interpretation showed no pneumonia, urine shows no infection, his TSH is normal, his mono is negative, his COVID/flu/RSV is negative, he is not especially prerenal, and his blood counts are unremarkable. Given the D-dimer and left-sided chest pain which I suspect is probably reflux, he was sent for CT angiography of the chest to rule out pulmonary embolus. I reviewed the images and report which I agree with, it is essentially normal and negative for PE. It also did show some signs of possible esophagitis, again consistent with the patient's chest discomfort on the left side it feels hot and burning. He is already on omeprazole. As I discussed with the patient I would never tell anyone that nothing is wrong, but he has a history of anxiety and prior to knowing this I asked the patient if he was having anxiety attacks and he does not think he is. Is possible that could be causing some of this especially the paresthesias. His lactate was sent to rule out sepsis given his symptoms and borderline blood pressures despite negative orthostatics, that is well within normal limits. Given all of this, his medical workup is essentially normal, so I discussed his medications with him. He lists a combination blood pressure medication which he takes every day, and propranolol extended release. He states he has not taken the propranolol in a while, because it made him feel really fatigued and lightheaded. I can recommend that he not take it anymore, but also discontinue the other combination blood pressure medication until he follows up with his doctor given his low blood pressure readings. Lab Data Attestation: I reviewed the patient's lab results. Labs: Laboratory Results - last 24 hr 02/06/24 02/06/24 02/06/24 00:16 00:33 01:20 WBC 10.2 RBC 4.62 Hgb 16.5 Hct 46.2 MCV 100.0 H MCH 35.7 H MCHC 35.7 RDW Std Deviation 41.0 RDW Coeff of Naty 11.2 L Plt Count 199 MPV 9.5 Immature Gran % (Auto) 0.400 Neut % (Auto) 50.9 Lymph % (Auto) 33.8 [place] % (Auto) 10.9 H Eos % (Auto) 3.1 Baso % (Auto) 0.9 Absolute Neuts (auto) 5.2 Absolute Lymphs (auto) 3.43 Nucleated RBC % 0 D-Dimer Quant (PE/DVT) 1.96 H* Sodium 134 L Potassium 3.7 Chloride 97 L Carbon Dioxide 26.0 Anion Gap 11 BUN 15 Creatinine 0.98 Estim Creat Clear Calc 89.30 Est GFR (MDRD) Af Amer 104 Est GFR (MDRD) Non-Af 86 BUN/Creatinine Ratio 15.3 Glucose 103 Lactic Acid Calcium 9.4 Troponin I High Sens 4 TSH 2.960 Urine Color Straw Urine Clarity Clear Urine pH 6.0 Ur Specific [place] 1.010 Urine Protein Negative Urine Glucose (UA) Normal Urine Ketones Negative Urine Occult Blood Negative Urine Nitrite Negative Urine Bilirubin Negative Urine Urobilinogen Normal Ur Leukocyte Esterase Negative Urine RBC 0 SEEN Urine WBC 0 SEEN Ur Squamous Epith Cells 0 SEEN Urine Bacteria 0 SEEN Urine Mucus 0 SEEN Monoscreen Negative 02/06/24 03:19 WBC RBC Hgb Hct MCV MCH MCHC RDW Std Deviation RDW Coeff of Naty Plt Count MPV Immature Gran % (Auto) Neut % (Auto) Lymph % (Auto) [place] % (Auto) Eos % (Auto) Baso % (Auto) Absolute Neuts (auto) Absolute Lymphs (auto) Nucleated RBC % D-Dimer Quant (PE/DVT) Sodium Potassium Chloride Carbon Dioxide Anion Gap BUN Creatinine Estim Creat Clear Calc Est GFR (MDRD) Af Amer Est GFR (MDRD) Non-Af BUN/Creatinine Ratio Glucose Lactic Acid 1.3 Calcium Troponin I High Sens TSH Urine Color Urine Clarity Urine pH Ur Specific [place] Urine Protein Urine Glucose (UA) Urine Ketones Urine Occult Blood Urine Nitrite Urine Bilirubin Urine Urobilinogen Ur Leukocyte Esterase Urine RBC Urine WBC Ur Squamous Epith Cells Urine Bacteria Urine Mucus Monoscreen Radiography Diagnostic Testing: Clinical Impression(s) from Imaging Studies Chest X-Ray 02/06/24 00:22 IMPRESSION: Chest with no acute disease. Electronically Signed: Phillip Butcher MD at 2:15 EST , Chest CTA 02/06/24 02:35 IMPRESSION: Diffuse long segment circumferential esophageal wall thickening suggesting esophagitis. No pulmonary embolus or acute aortic abnormality. Electronically Signed: Phillip Butcher MD at 3:47 EST , Rhythm Strip Rhythm Strip: Sinus Rhythm Rate: 75 Ectopy: None EKG Initial EKG: Attestation: I personally reviewed and interpreted this EKG as follows: Interpretation: Sinus Rhythm and No Acute Injury Pattern Comments: Nml axis & intervals; nml EKG Prior EKG tracings: not available for review Prior: No Prior Discharge Plan Triage Chief Complaint: Chest Pain ED Provider: Tank Alexis Dx/Rx/DC Orders Clinical Impression: Fatigue, Lightheadedness, Transient hypotension, Paresthesias, Non-cardiac chest pain Instructions: ED Low Blood Pressure, All Causes, ED Paraesthesias Prescriptions: Continued citalopram 20 mg tablet 40 mg PO DAILY Patient Comments: TAKE 2 TABLET BY MOUTH EVERY DAY ibuprofen 600 mg tablet 600 mg PO Q6H PRN PRN (Reason: pain) Qty: 20 0RF Held lisinopril-hydrochlorothiazide 10-12.5 mg tablet 1 tab PO DAILY Hold Instructions: until you follow up with your doctor, unless your systolic blood pressures are 160 or higher, then restart Patient Comments: TAKE 1 TABLET BY MOUTH EVERY DAY Discontinued propranolol 60 mg capsule,extended release 24 hr 60 mg PO QHS Primary Care Provider: Flavio Delong Referrals: Flavio Delong, [Primary Care Provider] - As soon as possible Print Language: Greek Disposition Disposition: Home, Self Care
[2024-02-06 00:32] LABS: Absolute Lymphocyte Count 3.43 X10^3/uL (0.83-4.51); Absolute Neutrophil Count 5.2 X10^3/uL (2.0-7.7); Basophil# 0.09 X10^3/uL; Basophil% 0.9 % (0-1); Eosinophil# 0.32 X10^3/uL; Eosinophils% 3.1 % (0-5); Hematocrit 46.2 % (40-54); Hemoglobin 16.5 g/dL (13.0-16.5); Lymphocyte # 3.43 X10^3/ul (0.83-4.51); Lymphocyte % 33.8 % (19-41); Mean Corp Hgb Conc 35.7 g/dL (32-36); Mean Corpuscular Hgb 35.7 pg (27.0-32.0); Mean Platelet Vol. 9.5 fl (6.2-12.0); Monocyte# 1.11 X10^3/uL; Monocyte% 10.9 % (0-10); NRBC Flagged by Analyzer 0 % (0-5); Neutrophil # 5.17 X10^3/uL (2.7-7.7); Neutrophil % 50.9 % (47-70); Platelet Count 199 K/mm3 (150-450); RBC Distribution Width CV 11.2 % (11.6-14.6); Red Blood Count 4.62 M/mm3 (4.6-6.2); White Blood Count 10.2 K/mm3 (4.4-11.0)
[2024-02-06] MEDS: 0.9% Normal Saline (1000mL) 1,000 ML 999 ML IV (00:34)
[2024-02-06 00:51] LABS: D-Dimer Quantitative (DVT/PE) 1.96 FEU/ug/m (0.27-0.49)
[2024-02-06 00:57] LABS: Internal QC Validated? YES +Cl - CLEAR BKGD; Monotest Negative (Negative)
[2024-02-06 00:58] LABS: Record Kit Lot#, Mono 13241430
[2024-02-06 01:10] LABS: Anion Gap 11 (5-15); BUN 15 mg/dL (7-18); BUN/Creat Ratio 15.3 RATIO (10-20); Calcium,Total 9.4 mg/dL (8.5-10.1); Chloride 97 mmol/L (98-107); Creatinine, Serum 0.98 mg/dL (0.70-1.30); EST Glomerular Filtration Rate 86 mL/min (>60); Est Glom Filt Rate - Afr Amer 104 mL/min (>60); Glucose 103 mg/dL (74-106); Potassium 3.7 mmol/L (3.5-5.1); Sodium Level 134 mmol/L (136-145); Troponin-I HS 4 pg/mL (3.0-78.0)
[2024-02-06] MEDS: DiphenhydrAMINE 50 MG/ML Syringe IV (01:14)
[2024-02-06 01:24] LABS: Bacteria 0 SEEN /hpf (None Seen); Mucous, Urine 0 SEEN /hpf (<or=2+); Red Blood Cells-Urine 0 SEEN /hpf (0-5); Squamous Epithelial Cells - UA 0 SEEN /hpf (0-5); White Blood Cells 0 SEEN /hpf (0-5)
[2024-02-06 01:26] LABS: Color, Urine Straw (Yellow); Glucose, Dipstick Normal (Normal); Ketone-Dipstick Negative (Negative); Leukocyte Esterase-Dipstick Negative /ul (Negative); Nitrite-Dipstick Negative (Negative); Occult Blood-Urine Negative /ul (Negative); Protein-Dipstick Negative (Negative); Urine Bilirubin Dipstick Negative (Negative); Urine Clarity Clear (Clear); Urine Urobilinogen Normal (Normal)
--- NOTE | 2024-02-06 02:35 | CT_ITS ---
INDICATION: chest pain, elevated d-dimer EXAMINATION: - CTA Chest WO/W Contrast Injection A radiation dose optimization technique was used for this scan. RADIATION DOSAGE (If Supplied By Facility): CTDIvol/DLP = ( 11.61 ) / ( 397.84 ) mGy/mGycm COMPARISON: Chest radiograph same day. FINDINGS: Contrast enhanced serial CTA axial images through the chest with coronal and sagittal reformatted series. Additional dedicated coronal and sagittal MIP reformatted series provided as well. IV Contrast dosage and agent: 100 cc Isovue-370 IV. MEDIASTINUM: No acute thoracic aortic abnormality. No pulmonary artery filling defects. Diffuse long segment circumferential esophageal wall thickening suggesting esophagitis. LUNG PARENCHYMA: No acute pulmonary parenchymal abnormality. PLEURA: No pleural effusion. No pneumothorax. BONES: Osseous structures are unremarkable for age. UPPER ABDOMEN: Unremarkable. CT/CTA Chest W/WO Contrast IMPRESSION: Diffuse long segment circumferential esophageal wall thickening suggesting esophagitis. No pulmonary embolus or acute aortic abnormality. Electronically Signed: Phillip Butcher MD at 3:47 EST ,
[2024-02-06 04:01] LABS: Lactic Acid 1.3 mmol/L (0.4-1.9)
== END 2024-02-06 04:17 | disposition home or self-care (01) ==
PROVIDERS: Emergency Provider Emergency Medicine; PCP Family Medicine; Visit Provider Emergency Medicine
DX: R53.83 Other fatigue (principal); R42 Dizziness and giddiness; I95.89 Other hypotension; R20.2 Paresthesia of skin; R07.89 Other chest pain; F41.9 Anxiety disorder, unspecified; I10 Essential (primary) hypertension; Z87.891 Personal history of nicotine dependence; Z79.899 Other long term (current) drug therapy
CPT/HCPCS: 71045; 71275; 80048; 81001; 83605; 84443; 84484; 85025; 85379; 86308; 87631; 93005; 96361; 96374; 96375; 96376; 99284; Q9967; A4216

== ENCOUNTER 2024-02-07 23:33 | Emergency (ER) | payer OTHER, SELFPAY ==
--- NOTE | 2024-02-07 11:50 | RAD_ITS ---
STUDY: X-RAY CHEST REASON FOR EXAM: Male, 53 years old. chest pain TECHNIQUE: Single frontal view of the chest. COMPARISON: Chest x-ray. February 06, 2024. FINDINGS: The lungs are clear and expanded. There is no demonstrated pleural abnormality. Normal size heart. Normal mediastinum and servando. Normal visualized pulmonary arteries. Normal visualized aortic arch and descending thoracic aorta. Normal visualized thoracic spine. Normal visualized ribs, clavicles, and shoulders. There is no demonstrated abnormality of the visualized soft tissue structures of the upper abdomen. RAD/Chest 1 View (Portable) IMPRESSION: Normal x-ray examination of the chest. Electronically Signed: Ethan Olivia MD at 0:44 EST ,
[2024-02-07 23:33] VITALS: BP 97/60; PULSE 78; RESP 16; TEMP 36.9; O2SAT 98; BMI 29.1
--- NOTE | 2024-02-07 23:37 | EKG12_ITS ---
Test Reason : DYSRHYTHMIA Blood Pressure : */* mmHG Vent. Rate : 79 BPM Atrial Rate : 79 BPM P-R Int : 170 ms QRS Dur : 86 ms QT Int : 396 ms P-R-T Axes : 18 7 22 degrees QTcB Int : 454 ms Normal sinus rhythm Normal ECG Confirmed by LISA TUCKER, MYAH ([id number]), commissioning editor LAURA BROWN ([id number]) on 02/09/2024 6:13:23 AM Referred By: Confirmed By: MYAH GONZALEZ MD
--- NOTE | 2024-02-08 00:11 | CT_ITS ---
EXAM: CT ANGIOGRAPHY HEAD AND NECK WITH INTRAVENOUS CONTRAST CLINICAL INDICATION: weakness TECHNIQUE: [place] [facility] [place]/head and neck CT angiography protocol performed with intravenous contrast. This CT exam was performed using one or more of the following dose reduction techniques: automated exposure control, adjustment of the mA and/or kV according to patient size, and/or use of iterative reconstruction technique. MIP reconstructed images were created and reviewed. CONTRAST: 100 cc of Isovue-370 IV. RADIATION DOSE: CTDIvol = 32.36 mGy, DLP = 1669.94 mGy-cm COMPARISON: No relevant prior studies available. FINDINGS: HEAD: RIGHT ANTERIOR CEREBRAL ARTERY: Unremarkable. No occlusion or significant stenosis. Anterior communicating artery is present. No aneurysm. RIGHT MIDDLE CEREBRAL ARTERY: Unremarkable. No occlusion or significant stenosis. No aneurysm. RIGHT POSTERIOR CEREBRAL ARTERY: Unremarkable. No occlusion or significant stenosis. No aneurysm. RIGHT INTRACRANIAL INTERNAL CAROTID ARTERY: Unremarkable. No significant stenosis. No dissection or occlusion. RIGHT INTRACRANIAL VERTEBRAL ARTERY: Unremarkable. No significant stenosis. No dissection or occlusion. LEFT ANTERIOR CEREBRAL ARTERY: Unremarkable. No occlusion or significant stenosis. No aneurysm. LEFT MIDDLE CEREBRAL ARTERY: Unremarkable. No occlusion or significant stenosis. No aneurysm. LEFT POSTERIOR CEREBRAL ARTERY: Unremarkable. No occlusion or significant stenosis. No aneurysm. LEFT INTRACRANIAL INTERNAL CAROTID ARTERY: Unremarkable. No significant stenosis. No dissection or occlusion. LEFT INTRACRANIAL VERTEBRAL ARTERY: Unremarkable. No significant stenosis. No dissection or occlusion. BASILAR ARTERY: Unremarkable. No occlusion or significant stenosis. No aneurysm. OTHER VASCULATURE: No vascular malformation. NECK: RIGHT COMMON CAROTID ARTERY: Unremarkable. No significant stenosis. No dissection or occlusion. RIGHT EXTRACRANIAL INTERNAL CAROTID ARTERY: Unremarkable. No significant stenosis. No dissection or occlusion. RIGHT EXTERNAL CAROTID ARTERY: Unremarkable. No occlusion. RIGHT EXTRACRANIAL VERTEBRAL ARTERY: Unremarkable. No significant stenosis. No dissection or occlusion. LEFT COMMON CAROTID ARTERY: Unremarkable. No significant stenosis. No dissection or occlusion. LEFT EXTRACRANIAL INTERNAL CAROTID ARTERY: Unremarkable. No significant stenosis. No dissection or occlusion. LEFT EXTERNAL CAROTID ARTERY: Unremarkable. No occlusion. LEFT EXTRACRANIAL VERTEBRAL ARTERY: Unremarkable. No significant stenosis. No dissection or occlusion. BRACHIOCEPHALIC AND SUBCLAVIAN ARTERIES: Unremarkable as visualized. No occlusion or significant stenosis. LUNG APICES: Unremarkable as visualized. HEAD and NECK: BONES/JOINTS: Unremarkable. No discrete lytic or blastic abnormalities. SOFT TISSUES: Unremarkable. CAROTID STENOSIS REFERENCE USING NASCET CRITERIA: % ICA stenosis = (1 - narrowest ICA diameter/diameter of distal cervical ICA) x 100. Mild - <50% stenosis. Moderate - 50-69% stenosis. Severe - 70-94% stenosis. Near occlusion - 95-99% stenosis. Occluded - 100% stenosis. CT/CTA Head AND Neck W/ Contrast IMPRESSION: Negative CTA carotid and CTA brain. Electronically Signed: Tee Larsen MD at 2:53 EST ,
[2024-02-08 00:17] LABS: Absolute Lymphocyte Count 3.43 X10^3/uL (0.83-4.51); Absolute Neutrophil Count 4.6 X10^3/uL (2.0-7.7); Basophil# 0.08 X10^3/uL; Basophil% 0.9 % (0-1); Eosinophil# 0.16 X10^3/uL; Eosinophils% 1.7 % (0-5); Hematocrit 41.6 % (40-54); Hemoglobin 14.9 g/dL (13.0-16.5); Lymphocyte # 3.43 X10^3/ul (0.83-4.51); Lymphocyte % 37.3 % (19-41); Mean Corp Hgb Conc 35.8 g/dL (32-36); Mean Corpuscular Hgb 36.3 pg (27.0-32.0); Mean Corpuscular Volume 101.5 fL (80-94); Mean Platelet Vol. 9.9 fl (6.2-12.0); Monocyte# 0.83 X10^3/uL; NRBC Flagged by Analyzer 0 % (0-5); Neutrophil # 4.64 X10^3/uL (2.7-7.7); Neutrophil % 50.6 % (47-70); Platelet Count 191 K/mm3 (150-450); RBC Distribution Width CV 11.6 % (11.6-14.6); RBC Distribution Width SD 43.5 fl (35.1-43.9); White Blood Count 9.2 K/mm3 (4.4-11.0)
[2024-02-08 00:19] LABS: Bedside Glucose 148 mg/dL (74-106)
[2024-02-08] MEDS: MethylPREDNISolone 125 MG/2 ML Vial IV (00:29)
[2024-02-08] MEDS: 0.9% Normal Saline (1000mL) 1,000 ML 999 ML IV (00:29)
[2024-02-08] MEDS: DiphenhydrAMINE 50 MG/ML Syringe 25 MG IV (00:29)
[2024-02-08 00:31] LABS: Anion Gap 11 (5-15); BUN 11 mg/dL (7-18); BUN/Creat Ratio 12.1 RATIO (10-20); Calcium,Total 8.2 mg/dL (8.5-10.1); Chloride 104 mmol/L (98-107); Creatinine, Serum 0.91 mg/dL (0.70-1.30); EST Glomerular Filtration Rate 93 mL/min (>60); Est Glom Filt Rate - Afr Amer 113 mL/min (>60); Estimated Creatinine Clearance 96.51 ml/min; Glucose 131 mg/dL (74-106); Potassium 3.3 mmol/L (3.5-5.1); Sodium Level 138 mmol/L (136-145); Troponin-I HS (w/2H Reflex) 6 pg/mL (3.0-78.0)
[2024-02-08 00:33] VITALS: BP 92/61; PULSE 68; RESP 18; O2SAT 93
[2024-02-08 00:45] LABS: AST(SGOT) 68 U/L (15-37); Alanine Aminotransfer ALT/SGPT 83 U/L (16-61); Albumin, Serum 3.4 g/dL (3.2-5.0); Alkaline Phosphatase 37 U/L (45-117); Bilirubin, Direct 0.12 mg/dL (0.00-0.30); Globulin 3.6 g/dL (2.2-4.2)
[2024-02-08 00:46] LABS: Bacteria 0 SEEN /hpf (None Seen); Mucous, Urine 0 SEEN /hpf (<or=2+); Red Blood Cells-Urine 0 SEEN /hpf (0-5); White Blood Cells 0 SEEN /hpf (0-5)
[2024-02-08 00:50] LABS: Color, Urine Yellow (Yellow); Glucose, Dipstick Normal (Normal); Ketone-Dipstick Negative (Negative); Leukocyte Esterase-Dipstick Negative /ul (Negative); Nitrite-Dipstick Negative (Negative); Occult Blood-Urine Negative /ul (Negative); Protein-Dipstick Negative (Negative); Urine Bilirubin Dipstick Negative (Negative); Urine Clarity Clear (Clear); Urine Urobilinogen Normal (Normal)
[2024-02-08 01:00] VITALS: BP 95/66; PULSE 67; RESP 18; O2SAT 94
[2024-02-08 01:05] LABS: Squamous Epithelial Cells - UA 0-5 SEEN /hpf (0-5)
[2024-02-08 01:25] LABS: Amphetamine Urine VISTA NEGATIVE (<1000 ng/mL); Barbiturate Urine VISTA NEGATIVE (< 200 ng/mL); Benzodiazepine Urine VISTA NEGATIVE (< 200 ng/mL); Cocaine Urine VISTA NEGATIVE (< 300 ng/mL); Ecstacy Urine VISTA NEGATIVE (< 500 ng/mL); Methadone Urine VISTA NEGATIVE (< 300 ng/mL); PCP Urine VISTA NEGATIVE (< 25 ng/mL); THC Urine VISTA NEGATIVE (< 50 ng/mL); Vista UDS pH Range 5
[2024-02-08 02:00] VITALS: BP 94/67; PULSE 78; RESP 16; O2SAT 996
[2024-02-08 02:04] LABS: Reflex Troponin-HS? (from REC) Y
[2024-02-08 03:00] VITALS: BP 96/76; PULSE 70; RESP 16; O2SAT 99
[2024-02-08 03:14] LABS: Troponin-I HS 4 pg/mL (3.0-78.0)
--- NOTE | 2024-02-08 03:46 | EDS_ITS ---
HPI History of Present Illness Chief Complaint: Syncope Informant: patient and spouse/S.O. Narrative Narrative: Patient is a 53-year-old male with history of of hypertension and anxiety. He states that over the last few days he has been having bouts of feeling li ghtheaded and dizzy and even passing out. He states he was seen in the ER just 2 days ago for similar event and was advised to stop taking his blood pressure medication. He states he has done that but there is been no improvement of symptoms and therefore he presents for repeat evaluation [facility] Medical History Anxiety HTN (hypertension) Hernia Home Medications ?Medication ?Instructions ?Recorded ?Last Taken ?Type citalopram 20 mg tablet 40 mg PO DAILY 12/21/22 Unknown History ibuprofen 600 mg tablet 600 mg PO Q6H PRN PRN pain #20 12/21/22 Unknown Rx TABLETS lisinopril 10 1 tab PO DAILY 12/21/22 Unknown History mg-hydrochlorothiazide 12.5 mg tablet Allergy/AdvReac Type Severity Reaction Status Date / Time Iodinated Contrast Media Allergy Swelling Verified 02/07/24 23:33 (Iodinated Contrast Media - IV Dye) Opioids - Morphine Analogues AdvReac Other Verified 02/07/24 23:33 (narcotics) Surgical History History of appendectomy History of hernia surgery Social History household members: family housing: house current occupational status: employed Smoking Status: Former smoker ROS ROS ED Constitutional Constitutional ED: Denies chills or fever(s) Eyes Eyes: Denies change in vision ENT ENT ED: Denies sore throat Cardiovascular Cardiovascular: Reports other Details: Positive syncope ; Denies chest pain, palpitations or racing heartbeat Respiratory/Chest Respiratory/Chest: Denies cough or dyspnea Gastrointestinal Gastrointestinal: Denies abdominal pain, diarrhea, nausea or vomiting Genitourinary Genitourinary ED: Denies dysuria Musculoskeletal Musculoskeletal: Denies back pain or neck pain Integumentary Denies rash Neurologic Neurologic: Reports weakness; Denies headache(s) or paresthesias Psychiatric Psychiatric: Reports anxiety Hematologic/Lymphatic Hematologic/Lymphatic: Denies easy bleeding or easy bruising EXAM Physical Exam Const Vital Signs: 02/07/24 23:33 02/07/24 23:37 02/08/24 00:04 Temperature 98.4 F Temperature Source Oral Pulse Rate 78 Respiratory Rate 16 Respiratory Pattern Normal Blood Pressure 97/60 Blood Pressure Mean 72 Pulse Ox 98 Oxygen Delivery Method Room Air Room Air 02/08/24 00:33 02/08/24 01:00 02/08/24 02:00 Temperature Temperature Source Pulse Rate 68 67 78 Respiratory Rate 18 18 16 Respiratory Pattern Blood Pressure 92/61 95/66 94/67 Blood Pressure Mean 71 75 76 Pulse Ox 93 94 996 Oxygen Delivery Method Room Air Room Air 02/08/24 03:00 02/08/24 03:53 Temperature 97.8 F Temperature Source Pulse Rate 70 68 Respiratory Rate 16 16 Respiratory Pattern Blood Pressure 96/76 96/67 Blood Pressure Mean 82 76 Pulse Ox 99 99 Oxygen Delivery Method Positive well nourished and well developed General Appearance ED: well developed; Negative for pallor HEENT Reports moist mucous membranes HEENT Narrative: No tongue or lip swelling no oral lesions no airway edema or compromise No secondary findings in the posterior pharynx to suggest infection No tongue or cheek biting to suggest seizure activity Eyes EOMs intact bilaterally Eyes Narrative: Pupils are dilated and slightly sluggish to respond to light There is mild scleral injection bilaterally as well General Eye ED: Negative for scleral icterus Neck supple Neck Narrative: No bony deformity or step-off of the cervical spine no midline tenderness to palpation Chest Wall palpation of chest normal Resp normal respiratory effort and clear to auscultation bilaterally Cardio regular rate and regular rhythm Rate: other Other Details: Heart is regular rate and rhythm without murmurs rubs or gallops Radial and carotid pulses are equal and symmetric No carotid bruit noted GI normal to inspection, nondistended, normoactive bowel sounds, non-tender, non- distended and no masses GI Narrative: No voluntary guarding or rigidity or pulsatile mass Auscultation: normoactive bowel sounds Palpation: soft Extremity normal to inspection Extremity Narrative: No asymmetric edema no pitting edema negative Homans' sign bilaterally Neuro oriented x3, CN's II-XII intact bilaterally and no sensory deficits noted Neuro Narrative: Cranial nerves II through XII are grossly intact without focal neurologic deficit No pronator drift no dysmetria no truncal ataxia NIH stroke scale score of 0 Please note at 1 point the patient did appear to pass out but when he was laid back and hands placed over top his face when they were dropped they were moved to the side not striking himself in the head/face indicating he is awake and not truly syncopal or having seizure or postictal changes. Sensorium / Orientation: alert Motor Exam: strength 5/5 throughout Psych Mood & Affect: anxious Skin no rashes or lesions noted General Skin Exam: Negative for jaundice or pallor MDM MDM MDM Narrative Medical decision making narrative: Patient arrived to the ER with stable vitals. He had just been seen 2 days prior for the same event. Chart review was performed and he had a chest x-ray CTA of the chest and basic laboratory studies all which were negative. Today as he is complaining of syncope there is concern that it could be secondary to a potential brain bleed or mass or neurologic dysfunction from a potential neck dissection or circulation obstruction. Therefore a CTA of the head and neck was performed and repeat laboratory studies were added. Because his physical exam showed pupillary dilation and scleral injection there was concern for alcohol use and was also concern for illicit drug ingestion as a cause of his symptoms. Lab work revealed no clinically significant findings such as acute blood loss anemia acute kidney injury or severe electrolyte abnormality. His alcohol level was elevated approximately 240 which correlate with his physical exam and could be the cause for his symptoms as well as mild hypotension. CT of the head and neck revealed no acute findings in chest x-ray revealed no acute lung pathology. Initial troponin was 6 delta was 4 going against an acute coronary syndrome and patient had no cardiac dysrhythmia while on the monitor in the ER. On repeat evaluation he reports he is feeling much better. His vitals are stable. At this time patient may be taking his blood pressure medication inappropriately but he denies this symptoms could be exacerbated by his underlying alcohol abuse. However his vitals are stable there is no cardiac dysrhythmia signs of acute coronary syndrome or neurologic episode I do not feel he needs admitted. He can follow-up with cardiology and/or neurology to discuss further testing such as tilt table testing or MRI if symptoms persist. Patient and family were instructed of this plan and they do agree to it and therefore will be discharged home History & Record Review Discussion w/independent historian: Patient and Significant other Lab Data Attestation: I reviewed the patient's lab results. Labs: Laboratory Results - last 24 hr 02/07/24 02/07/24 02/08/24 23:55 23:57 00:24 WBC 9.2 RBC 4.10 L Hgb 14.9 Hct 41.6 MCV 101.5 H MCH 36.3 H MCHC 35.8 RDW Std Deviation 43.5 RDW Coeff of Naty 11.6 Plt Count 191 MPV 9.9 Immature Gran % (Auto) 0.500 Neut % (Auto) 50.6 Lymph % (Auto) 37.3 [place] % (Auto) 9.0 Eos % (Auto) 1.7 Baso % (Auto) 0.9 Absolute Neuts (auto) 4.6 Absolute Lymphs (auto) 3.43 Nucleated RBC % 0 Sodium 138 Potassium 3.3 L Chloride 104 Carbon Dioxide 24.0 Anion Gap 11 BUN 11 Creatinine 0.91 Estim Creat Clear Calc 96.51 Est GFR (MDRD) Af Amer 113 Est GFR (MDRD) Non-Af 93 BUN/Creatinine Ratio 12.1 Glucose 131 H Calcium 8.2 L Magnesium 2.0 Total Bilirubin 0.30 Direct Bilirubin 0.12 AST 68 H ALT 83 H Alkaline Phosphatase 37 L Troponin I High Sens 6 Total Protein 7.0 Albumin 3.4 Globulin 3.6 TSH 1.740 Urine Color Urine Clarity Urine pH Ur Specific [place] Urine Protein Urine Glucose (UA) Urine Ketones Urine Occult Blood Urine Nitrite Urine Bilirubin Urine Urobilinogen Ur Leukocyte Esterase Urine RBC Urine WBC Ur Squamous Epith Cells Urine Bacteria Urine Mucus Urine Opiates Screen Urine Methadone Screen Ur Barbiturates Screen Ur Phencyclidine Scrn Ur Amphetamines Screen MDMA (Ecstasy) Screen U Benzodiazepines Scrn Urine Cocaine Screen U Cannabinoids Screen Ur Drug Screen Comment Ethyl Alcohol 234.0 POC Glucose 148 H 02/08/24 02/08/24 00:35 02:43 WBC RBC Hgb Hct MCV MCH MCHC RDW Std Deviation RDW Coeff of Naty Plt Count MPV Immature Gran % (Auto) Neut % (Auto) Lymph % (Auto) [place] % (Auto) Eos % (Auto) Baso % (Auto) Absolute Neuts (auto) Absolute Lymphs (auto) Nucleated RBC % Sodium Potassium Chloride Carbon Dioxide Anion Gap BUN Creatinine Estim Creat Clear Calc Est GFR (MDRD) Af Amer Est GFR (MDRD) Non-Af BUN/Creatinine Ratio Glucose Calcium Magnesium Total Bilirubin Direct Bilirubin AST ALT Alkaline Phosphatase Troponin I High Sens 4 Total Protein Albumin Globulin TSH Urine Color Yellow Urine Clarity Clear Urine pH 6.0 Ur Specific [place] 1.010 Urine Protein Negative Urine Glucose (UA) Normal Urine Ketones Negative Urine Occult Blood Negative Urine Nitrite Negative Urine Bilirubin Negative Urine Urobilinogen Normal Ur Leukocyte Esterase Negative Urine RBC 0 SEEN Urine WBC 0 SEEN Ur Squamous Epith Cells 0-5 SEEN Urine Bacteria 0 SEEN Urine Mucus 0 SEEN Urine Opiates Screen NEGATIVE Urine Methadone Screen NEGATIVE Ur Barbiturates Screen NEGATIVE Ur Phencyclidine Scrn NEGATIVE Ur Amphetamines Screen NEGATIVE MDMA (Ecstasy) Screen NEGATIVE U Benzodiazepines Scrn NEGATIVE Urine Cocaine Screen NEGATIVE U Cannabinoids Screen NEGATIVE Ur Drug Screen Comment Ethyl Alcohol POC Glucose Radiography Diagnostic Testing: Clinical Impression(s) from Imaging Studies Chest X-Ray 02/07/24 11:50 IMPRESSION: Normal x-ray examination of the chest. Electronically Signed: Ethan Olivia MD at 0:44 EST , Head/Neck CTA 02/08/24 00:11 IMPRESSION: Negative CTA carotid and CTA brain. Electronically Signed: Tee Larsen MD at 2:53 EST , Chest x-ray as interpreted by the emergency medicine physician reveals no acute infiltrate pneumothorax or pleural effusion Discharge Plan Triage Chief Complaint: Syncope ED Provider: Yordan Jackson Dx/Rx/DC Orders Clinical Impression: Syncope, Hypertension, Anxiety, Alcohol abuse Instructions: Causes of Syncope, Diagnosing Syncope Prescriptions: No Action citalopram 20 mg tablet 40 mg PO DAILY Patient Comments: TAKE 2 TABLET BY MOUTH EVERY DAY lisinopril-hydrochlorothiazide 10-12.5 mg tablet 1 tab PO DAILY Patient Comments: TAKE 1 TABLET BY MOUTH EVERY DAY ibuprofen 600 mg tablet 600 mg PO Q6H PRN PRN (Reason: pain) Qty: 20 0RF Primary Care Provider: Flavio Delong Referrals: Flavio Delong, [Primary Care Provider] - Activity Restrictions/Additional Instructions: Please follow-up with your family doctor to discuss referral to cardiology an d/or neurology to further evaluate the cause of your recurrent lightheaded/dizzy/syncopal sensation. Refrain from taking your blood pressure medication and return to the ER should you have any further concerns Print Language: Slovak Disposition Disposition: Home, Self Care Discharge Date/Time: 02/08/24 03:54
[2024-02-08 03:53] VITALS: BP 96/67; PULSE 68; RESP 16; TEMP 36.6; O2SAT 99
== END 2024-02-08 03:54 | disposition home or self-care (01) ==
PROVIDERS: Emergency Provider Emergency Medicine; PCP Family Medicine; Visit Provider Emergency Medicine
DX: R55 Syncope and collapse (principal); I10 Essential (primary) hypertension; F41.9 Anxiety disorder, unspecified; F10.10 Alcohol abuse, uncomplicated; Z79.899 Other long term (current) drug therapy; Z87.891 Personal history of nicotine dependence; Y90.7 Blood alcohol level of 200-239 mg/100 ml
CPT/HCPCS: 70496; 70498; 71045; 80048; 80076; 80307; 81001; 82077; 82962; 83735; 84443; 84484; 85025; 93005; 96361; 96374; 96375; 96376; 99285; P9612; Q9967; A4216

== ENCOUNTER → 2024-03-12 | Outpatient (CLI) | payer OTHER, SELFPAY ==
[2024-03-12 18:40] LABS: PSA,Total - Annual Screen 1.85 ng/mL (0.00-4.00)
[2024-03-13 10:02] LABS: Vitamin B12 949 pg/mL (211-911); Vitamin D,25 Hydroxy 28.1 ng/mL
== END | disposition home or self-care (01) ==
LOC: MTLAB 16:09
PROVIDERS: PCP Family Medicine; Referring Provider Family Medicine; Visit Provider Family Medicine
DX: R53.83 Other fatigue (principal); F10.90 Alcohol use, unspecified, uncomplicated; R20.2 Paresthesia of skin; E55.9 Vitamin D deficiency, unspecified; Z12.5 Encounter for screening for malignant neoplasm of prostate
CPT/HCPCS: 36415; 82306; 82607; 82746; 84153; G0103

== ENCOUNTER → 2024-04-17 | Outpatient (CLI) | payer OTHER, SELFPAY ==
--- NOTE | 2024-04-17 15:44 | MRI_ITS ---
PROCEDURE: MRI brain without and with IV contrast REASON FOR EXAM: Headache, dizziness TECHNIQUE: Multisequence multiplanar MR images of the brain were obtained before and after the administration of 18 mL of intravenous Clariscan contrast. COMPARISON: 02/08/2024 FINDINGS: No diffusion restriction to suggest acute/subacute ischemia. No evidence of acute intracranial hemorrhage, midline shift or mass effect. Cerebral volume is age-appropriate. No hydrocephalus. A couple of punctate hyperintense FLAIR signal foci in the right frontal lobe. No cortical edema. Globes are intact. Paranasal sinuses and mastoid air cells are relatively clear. No pathologic enhancement. MRI/Brain W/WO Contrast IMPRESSION: 1. No acute intracranial abnormality or pathologic enhancement. 2. A couple of punctate hyperintense FLAIR signal foci in the right frontal lob e which are nonspecific but can be seen with chronic small-vessel ischemic disease, chronic headaches and can be idiopathic amongst other etiologies. Reading Location: [place]
== END | disposition home or self-care (01) ==
LOC: MRI 15:29
PROVIDERS: PCP Family Medicine; Referring Provider Family Medicine; Visit Provider Family Medicine
DX: R42 Dizziness and giddiness (principal); R51.9 Headache, unspecified; R53.1 Weakness; H05.20 Unspecified exophthalmos
CPT/HCPCS: 70553; A9575